=== PATIENT | female | born 1995 ===

== ENCOUNTER 2020-05-29 08:06 | Outpatient (CLI) | payer OTHER | END 2020-05-29 10:13 | disposition home or self-care (01) | LOC: SONOGRAMA 08:06 | PROVIDERS: ATTEND Internal Medicine Gastroenterology | DX: R10.13 Epigastric pain (principal) ==

== ENCOUNTER 2022-03-05 20:27 | Emergency (ER) | payer OTHER ==
[~2022-03-05] VITALS: Ht 160 cm; Wt 56.7 kg
== END 2022-03-05 23:13 | disposition home or self-care (01) ==
LOC: ER 20:27
DX: S09.90XA Unspecified injury of head, initial encounter (principal); W18.30XA Fall on same level, unspecified, initial encounter; Y93.89 Activity, other specified; Y92.29 Other specified public building as the place of occurrence of the external cause; F10.129 Alcohol abuse with intoxication, unspecified; F19.90 Other psychoactive substance use, unspecified, uncomplicated